=== PATIENT | female | born 1965 | race Caucasian/White ===

== ENCOUNTER → 2021-03-12 | Day surgery (SDC) | payer OTHER ==
[~2021-03-12] VITALS: Ht 154.9 cm; Wt 100.7 kg
[~2021-03-12] MED LIST: ASCORBIC ACID500 MG PO; BUSPIRONE HCL15 MG PO; CYCLOBENZAPRINE10 MG PO; DEPLIN-ALGAL O1 EACH PO; FINACEA50 GM TOP; IRON18 MG PO; MELOXICAM15 MG PO; MINOCYCLINE HC100 M1 PO; MONTELUKAST SOD10 MG PO; MSM1000 MG PO; MULTIVITAMIN1 EACH PO; NEXIUM20 MG PO; VITAMIN D3125 MC2 PO; VITAMIN E200 UNI3 PO; [UNRECOGNIZED DRUG - OTHER] TOP
[2021-03-12 07:39] LABS: HCT 46.3 % (37.0-47.0); MCH 28.1 pg (25.0-31.0); MCHC 32.4 g/dL (32.0-36.0); MCV 86.9 fL (78.0-100.0); MPV 9.7 fL (6.0-9.5); RBC 5.33 M/uL (4.20-5.40); RDW 13.4 % (11.5-14.0); WBC 9.5 K/uL (4.0-10.5)
[2021-03-12 07:52] LABS: ALBUMIN 3.8 g/dL (3.4-5.0); BILIRUBIN - TOTAL 0.4 mg/dL (0.2-1.0); BUN/CREAT RATIO (CALC) 26.9 RATIO; CREATININE 0.67 mg/dL (0.51-0.95); GLOBULIN (CALCULATION) 3.4 g/dL; TOTAL PROTEIN 7.2 g/dL (6.4-8.2)
== END | disposition home or self-care (01) ==
LOC: FAS 06:42
PROVIDERS: Surgery
DX: Z12.11 Encounter for screening for malignant neoplasm of colon (principal); K29.50 Unspecified chronic gastritis without bleeding; K31.9 Disease of stomach and duodenum, unspecified; K21.9 Gastro-esophageal reflux disease without esophagitis; G47.30 Sleep apnea, unspecified; Z86.010 Personal history of colon polyps; Z99.89 Dependence on other enabling machines and devices; Z88.0 Allergy status to penicillin; Z88.1 Allergy status to other antibiotic agents; Z88.7 Allergy status to serum and vaccine; Z79.899 Other long term (current) drug therapy
CPT/HCPCS: 36415; 80053; J1610; J2704; J7120